=== PATIENT | male | born 1970 | race American Indian/Alaskan Native ===

== ENCOUNTER 2016-08-26 16:31 | Emergency (ER) | payer BC ==
[2016-08-26] MEDS ORDERED: FUL-GLO OP ONE (18:40)
[2016-08-26] MEDS ORDERED: TETRACAINE 0.5% OU STA (18:40)
--- NOTE | 2016-08-26 19:19 | Emergency Department Report ---
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 PT states a chemical splashed his eye. PT states he thinks it was battery acid because the cap to the battery came off. PT states his TD vaccines is up to date. PT states he was sent to and he had his eyes flushed with Dimitri's kristofer. PT states after his eyes were irrigated, his pain decreased but he was sent to ed for further testing. per pt's paperwork, he is to have his ocular ph tested. MD chief complaint: eye injury -: Sudden, hour(s) Onset Description: sudden Location: both eyes Place: work If Injury: chemical exposure (splash ) Eye Symptoms: burning, redness, pain Severity scale (0 -10): 0 Consistency: now resolved (after irrigation ) Treatments Prior to Arrival: irrigated eye - Related Data Patient Tetanus UTD: Yes Allergies Allergy/AdvReac Type Severity Reaction Status Date / Time No Known Allergies Allergy Unverified 08/26/16 16:49 ED Review of Systems ROS: Stated complaint: BATTERY ACID IN EYES Other details as noted in HPI Comment: All other systems reviewed and negative Eyes: eye pain (resolved ). denies: eye discharge, vision change Respiratory: denies: cough Gastrointestinal: denies: abdominal pain Skin: denies: rash ED Past Medical Hx - Past Medical History Previous Medical History?: No - Surgical History Past Surgical History?: No - Social History Smoking Status: Current Every Day Smoker Substance Use Type: Alcohol ED Physical Exam - General Limitations: No Limitations General appearance: alert, in no apparent distress - Head Head exam: Present: atraumatic, normocephalic, normal inspection - Eye Eye exam: Present: PERRL, EOMI, conjunctival injection, other (ocular ph 7 bilaterally ). Absent: nystagmus, periorbital swelling, periorbital tenderness Pupils: Present: normal accommodation - Expanded Eye Exam Expanded Pupils: Regular, Round: Bilateral Sclera/Conjunctival: Injection: Bilateral With correction: No - ENT ENT exam: Present: normal exam, normal external ear exam - Neck Neck exam: Present: normal inspection, full ROM - Respiratory Respiratory exam: Present: normal lung sounds bilaterally. Absent: respiratory distress, chest wall tenderness - Cardiovascular Cardiovascular Exam: Present: regular rate, normal rhythm, normal heart sounds - Extremities Exam Extremities exam: Present: normal inspection, full ROM - Back Exam Back exam: Present: normal inspection, full ROM - Neurological Exam Neurological exam: Present: alert, oriented X3, normal gait - Psychiatric Psychiatric exam: Present: normal affect, normal mood - Skin Skin exam: Present: warm, dry, intact, normal color ED Course Vital Signs 08/26/16 16:49 Temperature 98.3 F Pulse Rate 82 Respiratory 20 Rate Blood Pressure 160/106 O2 Sat by Pulse 100 Oximetry - Reevaluation(s) Reevaluation #1: 08/26/16 19:33 PT's eyes examined under wood's lamp by myself and Dr Marte - Pulse Oximetry Interpretation Digit-Finger Initial Pulse Oximetry Readin Actions Taken: none ED Medical Decision Making - Differential Diagnosis abrasion, chemical injury Critical Care Time: No Critical care attestation.: If time is entered above; I have spent that time in minutes in the direct care of this critically ill patient, excluding procedure time. ED Disposition Clinical Impression: Bilateral eye injuries Qualifiers: Encounter type: initial encounter Qualified Code(s): S05.91XA - Unspecified injury of right eye and orbit, initial encounter; S05.92XA - Unspecified injury of left eye and orbit, initial encounter Disposition: - TO HOME OR SELFCARE Is pt being admited?: No Does the pt Need Aspirin: No Condition: Stable Instructions: Chemical Eye Barboza (ED) Additional Instructions: Follow back up with Urgent Care as previously directed The ph of your eyes was 7.0 You will need to follow up with an eye doctor due to your eye injury follow up with your PCP in 3-5 days to have your bp rechecked Referrals: DARIO HASTINGS MD [Primary Care Provider] - 3-5 Days DEONNA BRIONES MD [Staff Physician] - 3-5 Days [facility] [Outside] - 3-5 Days Time of Disposition: 19:43
[2016-08-26] MEDS ORDERED: BSS OU ONE (19:32)
[2016-08-26 21:13] VITALS: BP 114/73
== END 2016-08-26 20:24 | disposition home or self-care (01) ==
LOC: ED 16:31
DX: S05.92XA Unspecified injury of left eye and orbit, initial encounter (principal); S05.91XA Unspecified injury of right eye and orbit, initial encounter; F17.210 Nicotine dependence, cigarettes, uncomplicated; X58.XXXA Exposure to other specified factors, initial encounter; Y93.89 Activity, other specified; Y92.89 Other specified places as the place of occurrence of the external cause; Y99.8 Other external cause status
CPT/HCPCS: 99283